=== PATIENT | male | born 1955 | race Caucasian/White ===

== ENCOUNTER 2016-08-01 20:24 | Emergency (ER) | payer BC ==
--- NOTE | 2016-08-01 20:31 | ER Document Report ---
ED Medical Screen (RME) - General Chief Complaint: Fever Stated Complaint: FEVER Time seen by provider: 20:31 Mode of Arrival: Ambulatory Information source: Patient Notes: 61-year-old male with bladder cancer with metastases to the lymph nodes finished a chemotherapy round yesterday at [facility]. He developed a fever of 101 today and was told to come to the emergency room for workup. He is wearing a mask. TRAVEL OUTSIDE OF THE [place] IN LAST 30 DAYS: No - Related Data Allergies/Adverse Reactions: No Known Allergies Allergy (Verified 08/01/16 20:29) Past Medical History - Past Medical History Cardiac Medical History: Denies: Hx Coronary Artery Disease, Hx Heart Attack, Hx Hypertension Pulmonary Medical History: Denies: Hx Asthma, Hx Bronchitis, Hx COPD, Hx Pneumonia Neurological Medical History: Denies: Hx Cerebrovascular Accident, Hx Seizures Endocrine Medical History: Reports: Hx Diabetes Mellitus Type 2 Renal/ Medical History: Reports: Hx Benign Prostatic Hyperplasia Musculoskeltal Medical History: Denies Hx Arthritis Traumatic Medical History: Reports: Hx Fractures - forearm fx's Past Surgical History: Reports: Hx Orthopedic Surgery - ORIF Left forearm - Immunizations Hx Diphtheria, Pertussis, Tetanus Vaccination: Yes
[2016-08-01 20:50] LABS: APPEARANCE,URINE CLEAR; BILIRUBIN,URINE NEGATIVE (NEGATIVE); GLUCOSE, URINE NEGATIVE (NEGATIVE); KETONES,URINE NEGATIVE (NEGATIVE); LEUKOCYTE ESTERASE,URINE NEGATIVE (NEGATIVE); NITRITE,URINE NEGATIVE (NEGATIVE); PROTEIN,URINE NEGATIVE (NEGATIVE); URINE SPECIFIC GRAVITY 1.002; UROBILINOGEN,URINE NEGATIVE mg/dL (<2.0)
[2016-08-01 22:10] LABS: ABSOLUTE LYMPHOCYTES (AUTO) 1.1 10^3/uL (0.5-4.7); ABSOLUTE MONOCYTES (AUTO) 0.2 10^3/uL (0.1-1.4); ABSOLUTE NEUT (AUTO) 4.9 10^3/uL (1.7-8.2); BASOPHILS % (AUTO) 0.1 % (0-2); HEMATOCRIT 33.2 % (37.9-51.0); HEMOGLOBIN 11.3 g/dL (13.5-17.0); HGB HCT DIFFERENCE 0.7; LYMPHOCYTES % (AUTO) 17.8 % (13-45); MEAN CORPUSCULAR HEMOGLOBIN 31.2 pg (27.0-33.4); MEAN CORPUSCULAR HGB CONC 34.1 g/dL (32.0-36.0); MEAN CORPUSCULAR VOLUME 92 fl (80-97); MONOCYTES % (AUTO) 2.7 % (3-13); RED BLOOD COUNT 3.63 10^6/uL (4.35-5.55); RED CELL DISTRIBUTION WIDTH 12.7 % (11.5-14.0); SEGMENTED NEUTROPHILS % (AUTO) 79.4 % (42-78); WHITE BLOOD COUNT 6.2 10^3/uL (4.0-10.5)
[2016-08-01 22:15] LABS: ALANINE AMINOTRANSFERASE 23 U/L (21-72); ALBUMIN 3.6 g/dL (3.5-5.0); ALKALINE PHOSPHATASE 154 U/L (38-126); ANION GAP 13 (5-19); ASPARTATE AMINO TRANSFERASE 20 U/L (17-59); BILIRUBIN,TOTAL 0.7 mg/dL (0.2-1.3); BLOOD UREA NITROGEN 19 mg/dL (7-20); CALCIUM 9.3 mg/dL (8.4-10.2); CARBON DIOXIDE 27 mmol/L (22-30); CHLORIDE 97 mmol/L (98-107); CREATININE RESULT 1.13 mg/dL (0.52-1.25); GLUCOSE 100 mg/dL (75-110); POTASSIUM 4.3 mmol/L (3.6-5.0); SODIUM 137.4 mmol/L (137-145)
--- NOTE | 2016-08-01 23:13 | ER Document Report ---
ED General - General Chief Complaint: Fever Stated Complaint: FEVER Mode of Arrival: Ambulatory Notes: Patient is a 61-year-old male with past medical history of stage IV bladder cancer currently receiving chemotherapy, last dose was yesterday at [facility] who presents with a fever to 101F recorded orally just prior to arrival. This temperature was checked as patient had apparently been complaining of being both hot and cold and was noted to be diaphoretic. He denies any additional complaints including cough, sputum depression, dysuria, abdominal pain, vomiting or diarrhea, headache, or neck pain. He has not had similar symptoms in the past. They did contact the oncologist suction plate carrier cleaner at [facility] who encouraged him to come to the emergency department for further evaluation. Notes that his fever did resolve after receiving 975 mg of Tylenol prior to arrival. Nothing worsens his symptoms. TRAVEL OUTSIDE OF THE [place] IN LAST 30 DAYS: No - Related Data Allergies/Adverse Reactions: No Known Allergies Allergy (Verified 08/01/16 20:29) Past Medical History - General Information source: Patient - Social History Smoking Status: Never Smoker Chew tobacco use (# tins/day): No Frequency of alcohol use: None Drug Abuse: None Lives with: Spouse/Significant other Family History: Reviewed & Not Pertinent Patient has suicidal ideation: No Patient has homicidal ideation: No - Past Medical History Cardiac Medical History: Denies: Hx Coronary Artery Disease, Hx Heart Attack, Hx Hypertension Pulmonary Medical History: Denies: Hx Asthma, Hx Bronchitis, Hx COPD, Hx Pneumonia Neurological Medical History: Denies: Hx Cerebrovascular Accident, Hx Seizures Endocrine Medical History: Reports: Hx Diabetes Mellitus Type 2 Renal/ Medical History: Reports: Hx Benign Prostatic Hyperplasia. Denies: Hx Peritoneal Dialysis Musculoskeltal Medical History: Denies Hx Arthritis Traumatic Medical History: Reports: Hx Fractures - forearm fx's Past Surgical History: Reports: Hx Orthopedic Surgery - ORIF Left forearm - Immunizations Hx Diphtheria, Pertussis, Tetanus Vaccination: Yes Review of Systems - Review of Systems Notes: Constitutional: Positive for fever. HENT: Negative for sore throat. Eyes: Negative for visual changes. Cardiovascular: Negative for chest pain. Respiratory: Negative for shortness of breath. Gastrointestinal: Negative for abdominal pain, vomiting or diarrhea. Genitourinary: Negative for dysuria. Musculoskeletal: Negative for back pain. Skin: Negative for rash. Neurological: Negative for headaches, weakness or numbness. 10 point ROS negative except as marked above and in HPI. Physical Exam - Vital signs Vitals: Pulse Resp BP Pulse Ox 84 20 130/76 H 94 08/01/16 20:30 08/01/16 20:30 08/01/16 20:30 08/01/16 20:30 Interpretation: Normal Notes: PHYSICAL EXAMINATION: GENERAL: Well-appearing, well-nourished and in no acute distress. HEAD: Atraumatic, normocephalic. EYES: Pupils equal round and reactive to light, extraocular movements intact, sclera anicteric, conjunctiva are normal. ENT: nares patent, oropharynx clear without exudates. Moist mucous membranes. NECK: Normal range of motion, supple without lymphadenopathy LUNGS: Breath sounds clear to auscultation bilaterally and equal. No wheezes rales or rhonchi. HEART: Regular rate and rhythm without murmurs ABDOMEN: Soft, nontender, normoactive bowel sounds. No guarding, no rebound. No masses appreciated. EXTREMITIES: Normal range of motion, no pitting or edema. No cyanosis. NEUROLOGICAL: No focal neurological deficits. Moves all extremities spontaneously and on command. PSYCH: Normal mood, normal affect. SKIN: Warm, Dry, normal turgor, no rashes or lesions noted. Course - Re-evaluation Re-evalutation: 08/01/16 23:12 Patient presents with fever recorded at home to 101.4 but is otherwise well in appearance. He has no localizing infectious symptoms. His laboratories here does not show neutropenia. Chest x-ray clear. Influenza negative. Urinalysis unremarkable. Blood and urine cultures have been drawn. I discussed this case with the oncologist suction plate carrier cleaner at [facility] where patient follows for his chemotherapy Dr. Coffman who is a fellow. She recommended obs without abx. This does not make clinical sense to me given that patient is not neutropenic and is otherwise very well in appearance and does not have a source. I discussed this with the hospitalist who agreed that this patient does not meet admission criteria. I also contacted our attending oncologist Dr. Hansen suction plate carrier cleaner who agrees that given that patient does not have a source, is not neutropenic, and is well appearing, hemodynamically within normal limits that he is stable for discharge home and she agrees that hospitalization is not required. At this time will discharge with return precautions and follow-up recommendations. Verbal discharge instructions given a the bedside and opportunity for questions given. Medication warnings reviewed. Patient is in agreement with this plan and has verbalized understanding of return precautions and the need for follow-up in the next 24-72 hours. - Vital Signs Vital signs: Temp Pulse Resp BP Pulse Ox 98.8 F 86 16 128/68 H 98 08/01/16 23:29 08/01/16 23:29 08/01/16 23:29 08/01/16 23:29 08/01/16 23:29 - Laboratory Result Diagrams: 08/01/16 21:45 08/01/16 21:45 Laboratory results interpreted by me: 08/01/16 08/01/16 08/01/16 20:30 21:45 21:45 RBC 3.63 L Hgb 11.3 L Hct 33.2 L Plt Count 143 L Seg Neutrophils % 79.4 H Monocytes % 2.7 L Chloride 97 L Alkaline Phosphatase 154 H Urine Blood SMALL H - Diagnostic Test Radiology reviewed: Image reviewed, Reports reviewed Radiology results interpreted by me: 08/01/16 23:25 Chest x-ray: No acute infiltrate Discharge - Discharge Clinical Impression: Fever Qualifiers: Fever type: unspecified Qualified Code(s): R50.9 - Fever, unspecified Bladder cancer Qualifiers: Bladder location: unspecified site Qualified Code(s): C67.9 - Malignant neoplasm of bladder, unspecified Condition: Good Disposition: HOME, SELF-CARE Additional Instructions: Your blood counts are normal today and your not neutropenic. Your chest x-ray, flu swab, and urinalysis are all normal. Please follow-up with your primary care team in the next 24-48 hours. Return immediately to the emergency department if you develop recurrent fevers, persistent vomiting, weakness, headache, neck pain, or any other symptoms that are concerning to you. Referrals: TREVOR PETERSEN MD [Primary Care Provider] - Follow up as needed
[2016-08-01 23:52] VITALS: BP 128/68
== END 2016-08-01 23:52 | disposition home or self-care (01) ==
LOC: ER 20:24
DX: R50.9 Fever, unspecified (principal); C67.9 Malignant neoplasm of bladder, unspecified; R61 Generalized hyperhidrosis; E11.9 Type 2 diabetes mellitus without complications; Z79.899 Other long term (current) drug therapy
CPT/HCPCS: 36415; 71020; 80053; 81001; 85025; 87040; 87086; 87804; 99283

== ENCOUNTER 2016-12-30 17:26 | Emergency (ER) | payer BC ==
[2016-12-30] MEDS ORDERED: NORMAL SALINE 1000 ML 1,000 ML IV PRN (18:14)
[2016-12-30] MEDS ORDERED: KETOROLAC TROMETHAMINE INJ/PF 30 MG/1 ML SDV IV ONE (18:36)
[2016-12-30] MEDS ORDERED: MORPHINE SULFATE 10 MG/ML INJ IV ONE (18:36)
--- NOTE | 2016-12-30 18:51 | RADIOLOGY REPORT (SQ) ---
EXAM DESCRIPTION: CHEST SINGLE VIEW COMPLETED DATE/TIME: 12/30/2016 6:29 pm REASON FOR STUDY: chest pain COMPARISON: 08/01/2016 EXAM PARAMETERS: NUMBER OF VIEWS: One view. TECHNIQUE: Single frontal radiographic view of the chest acquired. RADIATION DOSE: NA LIMITATIONS: None. FINDINGS: LUNGS AND PLEURA: No acute opacities, masses or pneumothorax. No pleural effusion. MEDIASTINUM AND HILAR STRUCTURES: Stable. HEART AND VASCULAR STRUCTURES: Heart normal in size. Normal vasculature. BONES: No acute findings. HARDWARE: Right chest port. OTHER: No other significant finding. IMPRESSION: NO ACUTE RADIOGRAPHIC FINDING IN THE CHEST. TECHNICAL DOCUMENTATION: JOB ID: [id number]
[2016-12-30 19:17] LABS: ABSOLUTE BASOPHILS # (AUTO) 0.1 10^3/uL (0.0-0.2); ABSOLUTE LYMPHOCYTES (AUTO) 1.1 10^3/uL (0.5-4.7); ABSOLUTE MONOCYTES (AUTO) 0.8 10^3/uL (0.1-1.4); ABSOLUTE NEUT (AUTO) 5.8 10^3/uL (1.7-8.2); BASOPHILS % (AUTO) 0.8 % (0-2); EOSINOPHILS % (AUTO) 0.2 % (0-6); HEMATOCRIT 32.4 % (37.9-51.0); HEMOGLOBIN 10.7 g/dL (13.5-17.0); HGB HCT DIFFERENCE -0.3; LYMPHOCYTES % (AUTO) 14.6 % (13-45); MEAN CORPUSCULAR HEMOGLOBIN 32.9 pg (27.0-33.4); MEAN CORPUSCULAR HGB CONC 33.1 g/dL (32.0-36.0); MEAN CORPUSCULAR VOLUME 99 fl (80-97); MONOCYTES % (AUTO) 10.3 % (3-13); RED BLOOD COUNT 3.25 10^6/uL (4.35-5.55); RED CELL DISTRIBUTION WIDTH 17.1 % (11.5-14.0); SEGMENTED NEUTROPHILS % (AUTO) 74.1 % (42-78); WHITE BLOOD COUNT 7.8 10^3/uL (4.0-10.5)
[2016-12-30 19:30] LABS: ALANINE AMINOTRANSFERASE 21 U/L (21-72); ALBUMIN 3.6 g/dL (3.5-5.0); ALKALINE PHOSPHATASE 147 U/L (38-126); ANION GAP 12 (5-19); ASPARTATE AMINO TRANSFERASE 15 U/L (17-59); BILIRUBIN,DIRECT 0.3 mg/dL (0.0-0.4); BILIRUBIN,TOTAL 0.4 mg/dL (0.2-1.3); BLOOD UREA NITROGEN 15 mg/dL (7-20); CALCIUM 8.8 mg/dL (8.4-10.2); CARBON DIOXIDE 19 mmol/L (22-30); CHLORIDE 108 mmol/L (98-107); GLUCOSE 100 mg/dL (75-110); LIPASE 76.6 U/L (23-300); POTASSIUM 5.2 mmol/L (3.6-5.0); SODIUM 139.1 mmol/L (137-145); TOTAL PROTEIN 7.9 g/dL (6.3-8.2)
--- NOTE | 2016-12-30 20:47 | ER Document Report ---
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 He said that he has had this in the past. He took his oxycodone, but has not taken his home morphine because he does not like the way it makes him feel. His family members noticed that he was anxious and confused earlier today, but this has resolved. Patient denies dysuria, flank pain, nausea, vomiting, diarrhea, constipation, fevers, rash, chest pain or shortness of breath. TRAVEL OUTSIDE OF THE [place] IN LAST 30 DAYS: No - Related Data Allergies/Adverse Reactions: No Known Allergies Allergy (Verified 12/30/16 17:50) Past Medical History - General Information source: Patient, Relative - Social History Smoking Status: Never Smoker Chew tobacco use (# tins/day): No Frequency of alcohol use: None Drug Abuse: None Family History: Reviewed & Not Pertinent - Past Medical History Cardiac Medical History: Denies: Hx Coronary Artery Disease, Hx Heart Attack, Hx Hypertension Pulmonary Medical History: Denies: Hx Asthma, Hx Bronchitis, Hx COPD, Hx Pneumonia Neurological Medical History: Denies: Hx Cerebrovascular Accident, Hx Seizures Endocrine Medical History: Reports: Hx Diabetes Mellitus Type 2 Renal/ Medical History: Reports: Hx Benign Prostatic Hyperplasia. Denies: Hx Peritoneal Dialysis Musculoskeltal Medical History: Denies Hx Arthritis Traumatic Medical History: Reports: Hx Fractures - forearm fx's Past Surgical History: Reports: Hx Orthopedic Surgery - ORIF Left forearm - Immunizations Hx Diphtheria, Pertussis, Tetanus Vaccination: Yes Review of Systems - Review of Systems Notes: REVIEW OF SYSTEMS: CONSTITUTIONAL: -fevers, -chills EENT: -eye pain, -difficulty swallowing, -nasal congestion CARDIOVASCULAR:-chest pain, -syncope. RESPIRATORY: -cough, -SOB GASTROINTESTINAL: +abdominal pain, -nausea, -vomiting, -diarrhea GENITOURINARY: -dysuria, -hematuria MUSCULOSKELETAL: -back pain, -neck pain SKIN: -rash or skin lesions. HEMATOLOGIC: -easy bruising or bleeding. LYMPHATIC: -swollen, enlarged glands. NEUROLOGICAL: -altered mental status or loss of consciousness, -headache, - neurologic symptoms PSYCHIATRIC: -anxiety, -depression. ALL OTHER SYSTEMS REVIEWED AND NEGATIVE. Physical Exam - Vital signs Vitals: Resp Pulse Ox 26 H 100 12/30/16 17:56 12/30/16 17:56 - Notes Notes: PHYSICAL EXAMINATION: GENERAL: Well-appearing, well-nourished and in no acute distress. HEAD: Atraumatic, normocephalic. EYES: Pupils equal round and reactive to light, extraocular movements intact, sclera anicteric, conjunctiva are normal. ENT: nares patent, oropharynx clear without exudates. Moist mucous membranes. NECK: Normal range of motion, supple without lymphadenopathy LUNGS: Breath sounds clear to auscultation bilaterally and equal. No wheezes rales or rhonchi. HEART: Tachycardia, regular rhythm ABDOMEN: Soft, normoactive bowel sounds. Tenderness over B/L inguinal regions but no hernia palpated. No guarding, no rebound. No crepitus or rash. No masses appreciated. EXTREMITIES: Normal range of motion, no pitting or edema. No cyanosis. NEUROLOGICAL: Cranial nerves grossly intact. Normal speech, normal gait. Normal sensory and motor exams. PSYCH: Normal mood, normal affect. SKIN: Warm, Dry, normal turgor, no rashes or lesions noted. Course - Re-evaluation Re-evalutation: Patient's labs and urine are unremarkable. His CT shows bony metastases to his pelvis, which is most likely causing his pain. He knows about these metastases. He only has 2 oxycodone left and says that the Naprosyn and oxycodone help with his pain more than the morphine. He is requesting a short refill until he can see his oncologist in 2 days. Provided him with a prescription of the Naprosyn and 10 oxycodones with follow-up at his [facility] oncologist. Given return precautions and patient understand. - Vital Signs Vital signs: Temp Pulse Resp BP Pulse Ox 98.2 F 18 111/60 98 12/30/16 18:01 12/30/16 21:45 12/30/16 21:01 12/30/16 21:45 - Laboratory Result Diagrams: 12/30/16 19:00 12/30/16 19:00 Laboratory results interpreted by me: 12/30/16 12/30/16 12/30/16 19:00 19:00 20:50 RBC 3.25 L Hgb 10.7 L Hct 32.4 L MCV 99 H RDW 17.1 H Potassium 5.2 H Chloride 108 H Carbon Dioxide 19 L AST 15 L Alkaline Phosphatase 147 H Urine Ketones TRACE H - Diagnostic Test Radiology reviewed: Image reviewed, Reports reviewed Radiology results interpreted by me: CT A/P: bony mets to pelvis Discharge - Discharge Clinical Impression: Pain from bone metastases Condition: Stable Disposition: HOME, SELF-CARE Additional Instructions: Follow-up with your oncologist for further evaluation and treatment. Bring a copy of your CAT scan and lab results. Prescriptions: Naproxen [Naprosyn 250 mg Tablet] 500 mg PO Q12H PRN #30 tablet PRN Reason: Oxycodone HCl [Oxycodone HCl 10 MG Tablet] 1 - 2 tab PO Q6H PRN #10 tablet PRN Reason: PAIN Referrals: WHIT YOUNG MD [Primary Care Provider] - Follow up as needed
[2016-12-30 21:22] LABS: APPEARANCE,URINE CLEAR; BILIRUBIN,URINE NEGATIVE (NEGATIVE); GLUCOSE, URINE NEGATIVE (NEGATIVE); KETONES,URINE TRACE mg/dL (NEGATIVE); LEUKOCYTE ESTERASE,URINE NEGATIVE (NEGATIVE); NITRITE,URINE NEGATIVE (NEGATIVE); PROTEIN,URINE NEGATIVE (NEGATIVE); URINE SPECIFIC GRAVITY 1.032; UROBILINOGEN,URINE NEGATIVE mg/dL (<2.0)
--- NOTE | 2016-12-30 21:24 | RADIOLOGY REPORT (SQ) ---
EXAM DESCRIPTION: CT ABD/PELVIS WITH IV ONLY COMPLETED DATE/TIME: 12/30/2016 8:39 pm REASON FOR STUDY: bladder cancer, pelvic pain, worsening mets COMPARISON: 09/09/2015 TECHNIQUE: CT scan of the abdomen and pelvis performed using helical scanning technique with dynamic intravenous contrast injection. No oral contrast. Images reviewed with lung, soft tissue, and bone windows. Reconstructed coronal and sagittal MPR images reviewed. Delayed images for evaluation of the urinary system also acquired. All images stored on PACS. All CT scanners at this facility use dose modulation, iterative reconstruction, and/or weight based d osing when appropriate to reduce radiation dose to as low as reasonably achievable (ALARA). [facility]: Dose Right [facility]: CareDose [facility]: Dose Right [facility]: Teradose 4D [facility]: [place] [facility] 911 CONTRAST TYPE AND DOSE: contrast/concentration: Isovue 370.00 mg/ml; Total Contrast Delivered: 81.0 ml; Total Saline Delivered: 68.0 ml RENAL FUNCTION: GFR > 60. RADIATION DOSE: 11.96. LIMITATIONS: None. FINDINGS: LOWER CHEST: No significant findings. No nodules or infiltrates. LIVER: Normal size. No dilated ducts. Scattered hepatic cysts. SPLEEN: Normal size. No focal lesions. PANCREAS: No masses. No significant calcifications. No adjacent inflammation or peripancreatic fluid collections. Pancreatic duct not dilated. GALLBLADDER: No identified stones by CT criteria. No inflammatory changes to suggest cholecystitis. ADRENAL GLANDS: No significant masses or asymmetry. RIGHT KIDNEY AND URETER: No solid masses. No significant calcifications. No hydronephrosis or hyd roureter. LEFT KIDNEY AND URETER: No solid masses. No significant calcifications. No hydronephrosis or hydr oureter. AORTA AND VESSELS: No aneurysm. No dissection. Renal arteries, SMA, celiac without stenosis. RETROPERITONEUM: Scattered small retroperitoneal lymph nodes. BOWEL AND PERITONEAL CAVITY: No masses or inflammatory changes. No free fluid or peritoneal masses. APPENDIX: Surgically absent. PELVIS: No mass or free fluid. Normal bladder. ABDOMINAL WALL: No masses. No hernias. BONES: The bones appear diffusely infiltrated with multiple blastic metastatic lesions. No fractures identified. OTHER: No other significant finding. IMPRESSION: The bones appear diffusely infiltrated with multiple blastic metastatic lesions. No fra ctures identified. TECHNICAL DOCUMENTATION: JOB ID: [id number] Quality ID # [id number]: Final reports with documentation of one or more dose reduction techniques (e.g., Au tomated exposure control, adjustment of the mA and/or kV according to patient size, use of iterative reconstruction technique) 2010 [employer]- All Rights Reserved
[2016-12-30 21:28] VITALS: BP 111/60
--- NOTE | 2017-01-03 22:40 | EKG REPORT ---
SEVERITY:- ABNORMAL ECG - SINUS TACHYCARDIA LEFT ANTERIOR FASCICULAR BLOCK LOW VOLTAGE IN FRONTAL LEADS : Confirmed by: Sandy Trivedi 03-Jan-2017 22:40:08
== END 2016-12-30 22:03 | disposition home or self-care (01) ==
LOC: ER 17:26
DX: G89.3 Neoplasm related pain (acute) (chronic) (principal); C79.51 Secondary malignant neoplasm of bone; M79.1 Myalgia; E11.9 Type 2 diabetes mellitus without complications; Z85.51 Personal history of malignant neoplasm of bladder
CPT/HCPCS: 36591; 99285; 96361; 96374; 96375; 36415; 83690; 85025; 80053; 81001; 83880; 71010; 74177; J1885; J2270; J7030; 93010

== ENCOUNTER 2017-03-08 16:18 | Emergency (ER) | payer BC ==
--- NOTE | 2017-03-08 16:53 | ER Document Report ---
ED Medical Screen (RME) - General Chief Complaint: Knee Pain Stated Complaint: RIGHT LEG PAIN Time Seen by Provider: 03/08/17 16:52 Notes: Patient has metastatic bladder cancer. It is metastasized to his bones. He presents today with 3 days of right lower extremity pain and swelling. He states that he was referred by his doctors at [facility] to have an ultrasound done here today. TRAVEL OUTSIDE OF THE [place] IN LAST 30 DAYS: No - Related Data Allergies/Adverse Reactions: No Known Allergies Allergy (Verified 03/08/17 16:26) Home Medications: Current Home Medications Duloxetine HCl 20 mg PO DAILY 03/08/17 [History] Oxycodone HCl 45 mg PO Q4H 03/08/17 [History] Trazodone HCl 50 mg PO DAILY 03/08/17 [History] Past Medical History - Social History Chew tobacco use (# tins/day): No Frequency of alcohol use: None Drug Abuse: None - Past Medical History Cardiac Medical History: Denies: Hx Coronary Artery Disease, Hx Heart Attack, Hx Hypertension Pulmonary Medical History: Denies: Hx Asthma, Hx Bronchitis, Hx COPD, Hx Pneumonia Neurological Medical History: Denies: Hx Cerebrovascular Accident, Hx Seizures Endocrine Medical History: Reports: Hx Diabetes Mellitus Type 2 Renal/ Medical History: Reports: Hx Benign Prostatic Hyperplasia. Denies: Hx Peritoneal Dialysis Musculoskeltal Medical History: Denies Hx Arthritis Traumatic Medical History: Reports: Hx Fractures - forearm fx's Past Surgical History: Reports: Hx Appendectomy, Hx Orthopedic Surgery - ORIF Left forearm - Immunizations Hx Diphtheria, Pertussis, Tetanus Vaccination: Yes Physical Exam - Vital signs Vitals: Temp Pulse Resp BP Pulse Ox 98.7 F 102 H 16 97/61 L 98 03/08/17 16:26 03/08/17 16:26 03/08/17 16:26 03/08/17 16:26 03/08/17 16:26 Course - Vital Signs Vital signs: Temp Pulse Resp BP Pulse Ox 98.7 F 102 H 16 97/61 L 98 03/08/17 16:26 03/08/17 16:26 03/08/17 16:26 03/08/17 16:26 03/08/17 16:26
--- NOTE | 2017-03-08 18:22 | ER Document Report ---
ED Extremity Problem, Lower - General Chief Complaint: Knee Pain Stated Complaint: RIGHT LEG PAIN Time Seen by Provider: 03/08/17 16:52 Mode of Arrival: Ambulatory Information source: Patient Notes: Patient is a 61-year-old male with bladder cancer with bone metastasis who presents to the ER today for right knee swelling that started 3 days ago. Patient is complaining of pain to the right knee as well. He has no history of blood clots but is on chemotherapy. [place] told him to come to the emergency department to get an ultrasound to rule out DVT. He denies any calf pain, fever, chills, chest pain or shortness of breath. TRAVEL OUTSIDE OF THE [place] IN LAST 30 DAYS: No - Related Data Allergies/Adverse Reactions: No Known Allergies Allergy (Verified 03/08/17 16:26) Home Medications: Current Home Medications Duloxetine HCl 20 mg PO DAILY 03/08/17 [History] Oxycodone HCl 45 mg PO Q4H 03/08/17 [History] Trazodone HCl 50 mg PO DAILY 03/08/17 [History] Past Medical History - General Information source: Patient - Social History Smoking Status: Former Smoker Chew tobacco use (# tins/day): No Frequency of alcohol use: None Drug Abuse: None Family History: Reviewed & Not Pertinent - Past Medical History Cardiac Medical History: Denies: Hx Coronary Artery Disease, Hx Heart Attack, Hx Hypertension Pulmonary Medical History: Denies: Hx Asthma, Hx Bronchitis, Hx COPD, Hx Pneumonia Neurological Medical History: Denies: Hx Cerebrovascular Accident, Hx Seizures Endocrine Medical History: Reports: Hx Diabetes Mellitus Type 2 Renal/ Medical History: Reports: Hx Benign Prostatic Hyperplasia. Denies: Hx Peritoneal Dialysis Musculoskeltal Medical History: Denies Hx Arthritis Traumatic Medical History: Reports: Hx Fractures - forearm fx's Past Surgical History: Reports: Hx Appendectomy, Hx Orthopedic Surgery - ORIF Left forearm - Immunizations Hx Diphtheria, Pertussis, Tetanus Vaccination: Yes Review of Systems - Review of Systems Constitutional: No symptoms reported EENT: No symptoms reported Cardiovascular: No symptoms reported Respiratory: No symptoms reported Gastrointestinal: No symptoms reported Genitourinary: No symptoms reported Male Genitourinary: No symptoms reported Musculoskeletal: See HPI Skin: See HPI Hematologic/Lymphatic: No symptoms reported Neurological/Psychological: No symptoms reported Physical Exam - Vital signs Vitals: Temp Pulse Resp BP Pulse Ox 98.7 F 102 H 16 97/61 L 98 03/08/17 16:26 03/08/17 16:26 03/08/17 16:26 03/08/17 16:26 03/08/17 16:26 - Notes Notes: PHYSICAL EXAMINATION: GENERAL: chronically ill appearing, in no acute distress. HEAD: Atraumatic, normocephalic. EYES: Pupils equal round and reactive to light, extraocular movements intact, sclera anicteric, conjunctiva are normal. NECK: Normal range of motion, supple without lymphadenopathy LUNGS: CTAB and equal. No wheezes rales or rhonchi. HEART: Regular rate and rhythm without murmurs ABDOMEN: Soft, no tenderness. No guarding, no rebound EXTREMITIES: Normal range of motion, no pitting edema. No cyanosis. NEUROLOGICAL: Cranial nerves grossly intact. Normal sensory/motor exams. PSYCH: Normal mood, normal affect. SKIN: Warm, Dry, normal turgor, slight edema noted to right anterior knee, minimally tender Course - Re-evaluation Re-evalutation: 03/09/17 18:59 Doppler ultrasound was negative for any DVT, but did note some evidence that something may be blocking further up, possible common femoral or iliac veins, CTV was advised by Dr. Calderon, radiologist reading today who also states that he could follow-up with him in the office because this likely will not show anything. Patient was given the choice and decided to follow-up with him in the office. - Vital Signs Vital signs: Temp Pulse Resp BP Pulse Ox 98.7 F 102 H 20 109/71 91 L 03/08/17 16:26 03/08/17 16:26 03/08/17 18:00 03/08/17 18:00 03/08/17 18:00 Discharge - Discharge Clinical Impression: Pain and swelling of right knee, Bladder cancer metastasized to bone Condition: Stable Disposition: HOME, SELF-CARE Additional Instructions: Return immediately for any new or worsening symptoms. Follow up with primary care provider, call tomorrow to make followup appointment. Call tomorrow to follow up with Dr. Calderon in the office. He wanted to see you about your ultrasound and further evaluation of it. Referrals: KJ CALDERON MD [ACTIVE STAFF] - Follow up as needed
[2017-03-08 18:26] VITALS: BP 109/71
--- NOTE | 2017-03-09 10:43 | XCELERA REPORT ---
[address] [address] Lower Extremity Venous Evaluation Name: DAVID CHERRY Age: 61 yrs Gender: Male : 1955 Patient Status: Emergency Patient Location: ER Study Date: 03/08/2017 05:32 PM Procedure: Color flow and duplex imaging of the veins of the right lower extremity as well as the left Common Femoral vein. Reason For Study: cancer/right leg swelling/pain Ordering Physician: ROSE MARIE BISHOP Performed By: Joanne Pinto Right Sided Venous Evaluation Monophasic continuous flow in the Common Femoral vein. Otherwise normal vessel filling wall to wall, compression and augmentation as well as Colour flow down to the infrageniculate veins. Left Sided Venous Evaluation The left common femoral vein is fully compressible. Spontaneous and phasic flow is present in the left common femoral vein. Critical Findings Discussed with Dr Roque findings of negative DVT but suggestion of proximal disease, e.g. in the right Iliac vein. Interpretation Summary No duplex evidence of DVT or obstruction in the right lower extremity nor in the left Common Femoral vein. Abnormal signal in right Common Femoral vein may suggest pathology at a higher level, that may require other testing. : ROSE MARIE BISHOP > Zcah Calderon
== END 2017-03-08 18:35 | disposition home or self-care (01) ==
LOC: ER 16:18
DX: M25.561 Pain in right knee (principal); M25.461 Effusion, right knee; C67.9 Malignant neoplasm of bladder, unspecified; C79.51 Secondary malignant neoplasm of bone; Z79.899 Other long term (current) drug therapy; Z87.891 Personal history of nicotine dependence
CPT/HCPCS: 93971; 99283

== ENCOUNTER 2017-04-08 19:49 | Emergency (ER) | payer BC ==
[2017-04-08 20:39] VITALS: BP 110/69
--- NOTE | 2017-04-08 20:58 | ER Document Report ---
ED General - General Chief Complaint: Medical Complaint Stated Complaint: PORT TAKE OUT Time Seen by Provider: 04/08/17 20:56 Notes: Patient presents and states that he needs his port de-accessed. He states he was seen at [facility] today and I forgot to remove his port. Patient denies any other significant concerns. TRAVEL OUTSIDE OF THE [place] IN LAST 30 DAYS: No - Related Data Allergies/Adverse Reactions: No Known Allergies Allergy (Verified 03/08/17 16:26) Past Medical History - General Information source: Patient - Social History Smoking Status: Former Smoker Family History: Reviewed & Not Pertinent Patient has suicidal ideation: No Patient has homicidal ideation: No - Past Medical History Cardiac Medical History: Denies: Hx Coronary Artery Disease, Hx Heart Attack, Hx Hypertension Pulmonary Medical History: Denies: Hx Asthma, Hx Bronchitis, Hx COPD, Hx Pneumonia Neurological Medical History: Denies: Hx Cerebrovascular Accident, Hx Seizures Endocrine Medical History: Reports: Hx Diabetes Mellitus Type 2 Renal/ Medical History: Reports: Hx Benign Prostatic Hyperplasia. Denies: Hx Peritoneal Dialysis Musculoskeltal Medical History: Denies Hx Arthritis Traumatic Medical History: Reports: Hx Fractures - forearm fx's Past Surgical History: Reports: Hx Appendectomy, Hx Orthopedic Surgery - ORIF Left forearm - Immunizations Hx Diphtheria, Pertussis, Tetanus Vaccination: Yes Review of Systems - Review of Systems Constitutional: denies: Chills, Fever Physical Exam - Vital signs Vitals: Temp Pulse Resp BP Pulse Ox 98.5 F 116 H 16 110/69 100 04/08/17 20:34 04/08/17 20:34 04/08/17 20:34 04/08/17 20:34 04/08/17 20:34 - Notes Notes: Port shows a Meza needle in place. No surrounding erythema or tenderness. Exam otherwise unremarkable Course - Re-evaluation Re-evalutation: 04/08/17 20:57 Using sterile technique the Meza needle was DXS from the port. Patient tolerated this well and there were no complications. A sterile dressing was placed. - Vital Signs Vital signs: Temp Pulse Resp BP Pulse Ox 98.5 F 116 H 16 110/69 100 04/08/17 20:34 04/08/17 20:34 04/08/17 20:34 04/08/17 20:34 04/08/17 20:34 Discharge - Discharge Clinical Impression: Encounter for care related to vascular access port Condition: Stable Disposition: HOME, SELF-CARE Additional Instructions: Follow-up with [facility] as scheduled
== END 2017-04-08 21:00 | disposition home or self-care (01) ==
LOC: ER 19:49
DX: T82.9XXA Unspecified complication of cardiac and vascular prosthetic device, implant and graft, initial encounter (principal)
CPT/HCPCS: 99283

== ENCOUNTER 2017-04-11 23:48 | Emergency (ER) | payer BC ==
[2017-04-11] MEDS ORDERED: NORMAL SALINE 1000 ML 1,000 ML IV ONE (23:58)
--- NOTE | 2017-04-12 00:29 | ER Document Report ---
ED General - General Chief Complaint: Nausea/Vomiting/Diarrhea Stated Complaint: NAUSEA,VOMITING,DIARRHEA Time Seen by Provider: 04/11/17 23:50 Notes: Patient is a 61-year-old male presents with complaint of vomiting and diarrhea and feeling weak. Patient says that this is been ongoing since Wednesday. Says he has not had chemotherapy in 3 months. He has been receiving radiation treatment. Patient is followed at [facility] for all his cancer care. Is a history of stage IV bladder cancer. He also receives radiation to the bladder. T-max at home is been around 99. No blood in his emesis. No blood in the stool. He denies recent antibiotic use. His med list shows Zofran and Compazine. He says he knows he did take Zofran around 10 PM but he does not think he is taken to Compazine. Paramedics gave him some Reglan in route which seems to have helped him some. Patient has no other complaints at this time. TRAVEL OUTSIDE OF THE [place] IN LAST 30 DAYS: No - Related Data Allergies/Adverse Reactions: No Known Allergies Allergy (Verified 03/08/17 16:26) Past Medical History - Social History Smoking Status: Unknown if Ever Smoked Frequency of alcohol use: None Drug Abuse: None Family History: Reviewed & Not Pertinent - Past Medical History Cardiac Medical History: Denies: Hx Coronary Artery Disease, Hx Heart Attack, Hx Hypertension Pulmonary Medical History: Denies: Hx Asthma, Hx Bronchitis, Hx COPD, Hx Pneumonia Neurological Medical History: Denies: Hx Cerebrovascular Accident, Hx Seizures Endocrine Medical History: Reports: Hx Diabetes Mellitus Type 2 Renal/ Medical History: Reports: Hx Benign Prostatic Hyperplasia. Denies: Hx Peritoneal Dialysis Musculoskeltal Medical History: Denies Hx Arthritis Traumatic Medical History: Reports: Hx Fractures - forearm fx's Past Surgical History: Reports: Hx Appendectomy, Hx Orthopedic Surgery - ORIF Left forearm - Immunizations Hx Diphtheria, Pertussis, Tetanus Vaccination: Yes Review of Systems - Review of Systems Notes: My Normal Review Basic REVIEW OF SYSTEMS: CONSTITUTIONAL : Denies fever, chills, or sweats. Denies recent illness. EENT: Denies eye, ear, throat, or mouth pain or symptoms. Denies nasal or sinus congestion. CARDIOVASCULAR: Denies chest pain. RESPIRATORY: Denies cough, cold, or chest congestion. Denies shortness of breath, difficulty breathing, or wheezing. GASTROINTESTINAL: Mild abdominal pain. Vomiting and diarrhea. GENITOURINARY: Denies difficulty urinating, painful urination, burning, frequency, or blood in urine. MUSCULOSKELETAL: Denies neck or back pain or joint pain or swelling. SKIN: Denies rash or skin lesions. NEUROLOGICAL: Denies altered mental status or loss of consciousness. Denies headache. Denies weakness or paralysis or loss of use of either side. Denies problems with gait or speech. Denies sensory or motor loss. ALL OTHER SYSTEMS REVIEWED AND NEGATIVE. Physical Exam - Vital signs Vitals: Resp BP Pulse Ox 18 102/61 100 04/12/17 00:12 04/12/17 00:12 04/12/17 00:12 - Notes Notes: General Appearance: Well nourished, alert, cooperative, no acute distress, no obvious discomfort. Vitals: reviewed, See vital signs table. Eyes: PERRL, EOMI, Conjuctiva clear Mouth: No decreasd moisture Lungs: No wheezing, No rales, No rhonci, No accessory muscle use, good air exchange bilaterally. Heart: Normal rate, Regular rythm, No murmur, no rub Abdomen: Normal BS, soft, No rigidity, mild diffuse abdominal tenderness palpation, No guarding, no rebound, Extremities: strength 5/5 in all extremities, good pulses in all extremities, no swelling or tenderness in the extremities, no edema. Skin: warm, dry, appropriate color, no rash Neuro: speech clear, oriented x 3, normal affect, responds appropriately to questions. Course - Re-evaluation Re-evalutation: 04/12/17 05:23 Patient unfortunately has evidence of a bowel obstruction on CT scan. Patient also has hydroureter with some hydronephrosis on the right side. I did speak with the medical oncologist, Dr. Mcduffie, [facility] and says that this is old in comparison to previous CT scans there. I initially spoke with our general surgeon, Dr. Dupont, who does not feel the patient's to be cared for here and is to be transferred to [facility] as he would be better served there in case the patient does need operative intervention which would be best handled by on surgery which we do not have here. Also patient's oncology team is also at [facility] which handles his complex underlying condition. I did discuss the case with Dr. Mcduffie. Patient has significant pancytopenia which is new in comparison to previous labs. Patient does not have a fever. After much discussion with Dr. Mcduffie he says that the patient does not meet their criteria to be direct transferred to a medical floor [facility] and therefore would either have to go throughout ecology surgery or the ER. He recommends I speak with SURGERY. I did speak with Dr. Saucedo, oxygen, says that currently this is not a surgical case at this time and therefore he recommends going to the ER. I did speak with the ER, Dr. Avendano, who agrees to accept the patient. We will attempt to place an NG tube in place on low intermittent wall suctioning. Patient will be closely monitored until transfered. Dictation of this chart was performed using voice recognition software; therefore, there may be some unintended grammatical errors. - Vital Signs Vital signs: Temp Pulse Resp BP Pulse Ox 99.8 F 20 124/77 100 04/12/17 04:48 04/12/17 04:00 04/12/17 04:00 04/12/17 04:[address] scan shows possible obstruction. I did speak with her general surgeon, Dr. Dupont, he feels that patient be better served at [facility] because of ONC surgery backup that we do not have here. - Laboratory Result Diagrams: 04/12/17 01:30 04/12/17 00:10 Laboratory results interpreted by me: 04/12/17 04/12/17 04/12/17 00:10 01:05 01:30 WBC 1.5 L* RBC 2.39 L Hgb 6.7 L Hct 19.7 L RDW 17.2 H Plt Count 43 L Band Neutrophils % 34 H Lymphocytes % (Manual) 10 L Metamyelocytes % 2 H Abs Neuts (Manual) 1.3 L Abs Lymphs (Manual) 0.2 L Sodium 129.5 L Potassium 2.6 L* Chloride 85 L Carbon Dioxide 33 H BUN 31 H Glucose 124 H Calcium 7.5 L Direct Bilirubin 0.8 H Alkaline Phosphatase 261 H Total Protein 5.1 L Albumin 2.3 L Urine Protein 100 H Urine Blood SMALL H Urine Urobilinogen 4.0 H - EKG Interpretation by Me Additional EKG results interpreted by me: 04/12/17 00:26 EKG is reviewed and interpreted by me. EKG shows sinus tachycardia with rate of 119 bpm. Patient does have some ST segment depression lead V2 however this may be related to his right bundle branch block with left anterior fascicular block. No significant ST segment elevations. SD interval is within normal range. QRS duration and QTc intervals are prolonged. Old EKG for comparison is from December 30, 2016. Discharge - Discharge Clinical Impression: Hypokalemia, Hyponatremia, Pancytopenia Bowel obstruction Qualifiers: Intestinal obstruction type: unspecified Intestinal obstruction extent: partial Qualified Code(s): K56.600 - Partial intestinal obstruction, unspecified as to cause Condition: Stable Disposition: [place]
[2017-04-12 00:37] LABS: ALANINE AMINOTRANSFERASE 29 U/L (21-72); ALBUMIN 2.3 g/dL (3.5-5.0); ALKALINE PHOSPHATASE 261 U/L (38-126); ANION GAP 12 (5-19); ASPARTATE AMINO TRANSFERASE 20 U/L (17-59); BILIRUBIN,DIRECT 0.8 mg/dL (0.0-0.4); BILIRUBIN,TOTAL 1.1 mg/dL (0.2-1.3); BLOOD UREA NITROGEN 31 mg/dL (7-20); CALCIUM 7.5 mg/dL (8.4-10.2); CARBON DIOXIDE 33 mmol/L (22-30); CHLORIDE 85 mmol/L (98-107); CREATININE RESULT 1.11 mg/dL (0.52-1.25); GLUCOSE 124 mg/dL (75-110); LIPASE 62.2 U/L (23-300); MAGNESIUM 2.1 mg/dL (1.6-2.3); SODIUM 129.5 mmol/L (137-145); TOTAL PROTEIN 5.1 g/dL (6.3-8.2)
--- NOTE | 2017-04-12 00:39 | EKG REPORT ---
SEVERITY:- ABNORMAL ECG - SINUS TACHYCARDIA RBBB AND LAFB : Confirmed by: Sandy Trivedi 12-Apr-2017 00:38:46
[2017-04-12 00:42] LABS: POTASSIUM 2.6 mmol/L (3.6-5.0)
[2017-04-12] MEDS ORDERED: POTASSIUM CHLORIDE 10 MEQ TABLET.SA PO ONE (00:50)
[2017-04-12] MEDS: POTASSI CL 20 MEQ/50 ML RIDER 20 MEQ/50 ML RTUPB IV SCH ×2 (01:08→03:09)
[2017-04-12 01:30] LABS: APPEARANCE,URINE SLIGHTLY-CLOUDY; BILIRUBIN,URINE NEGATIVE (NEGATIVE); GLUCOSE, URINE NEGATIVE (NEGATIVE); KETONES,URINE NEGATIVE (NEGATIVE); LEUKOCYTE ESTERASE,URINE NEGATIVE (NEGATIVE); NITRITE,URINE NEGATIVE (NEGATIVE); PROTEIN,URINE 100 mg/dL (NEGATIVE); URINE SPECIFIC GRAVITY 1.018
[2017-04-12 01:43] LABS: HEMATOCRIT 19.7 % (37.9-51.0); HGB HCT DIFFERENCE 0.4; MEAN CORPUSCULAR VOLUME 82 fl (80-97); RED BLOOD COUNT 2.39 10^6/uL (4.35-5.55); RED CELL DISTRIBUTION WIDTH 17.2 % (11.5-14.0)
[2017-04-12 01:45] LABS: BACTERIA,URINE 1+ /HPF
[2017-04-12] MEDS ORDERED: HYDROMORPHONE HCL INJ/PF 2 MG/ML AMPULE IV ONE (01:46)
[2017-04-12 02:01] LABS: BASOPHILS % (MANUAL) 0 % (0-2); EOSINOPHILS % (MANUAL) 0 % (0-6); LYMPHOCYTES % (MANUAL) 10 % (13-45); NUCLEATED RED BLOOD CELLS 2 /100 WBC (0); TOTAL CELLS COUNTED 50
[2017-04-12 02:04] LABS: ANISOCYTOSIS 1+; OVALOCYTES SLIGHT; POLYCHROMASIA SLIGHT; TARGET CELLS SLIGHT; TEAR DROP CELLS SLIGHT; TOXIC GRANULATION 1+
[2017-04-12 02:06] LABS: WHITE BLOOD COUNT 1.5 10^3/uL (4.0-10.5)
[2017-04-12 02:07] LABS: BAND NEUTROPHILS % (MANUAL) 34 % (3-5); HEMOGLOBIN 6.7 g/dL (13.5-17.0)
--- NOTE | 2017-04-12 03:30 | RADIOLOGY REPORT (SQ) ---
EXAM DESCRIPTION: CT ABD/PELVIS WITH IV ONLY COMPLETED DATE/TIME: 04/12/2017 2:43 am REASON FOR STUDY: abdominal pain, vomiting, diarrhea . History of bladder cancer. COMPARISON: CT abdomen and pelvis 12/30/2016, 09/09/2015. TECHNIQUE: CT scan of the abdomen and pelvis performed using helical scanning technique with dynamic intravenous contrast injection. No oral contrast. Images reviewed with lung, soft tissue, and bone windows. Reconstructed coronal and sagittal MPR images reviewed. Delayed images for evaluation of the urinary system also acquired. All images stored on PACS. All CT scanners at this facility use dose modulation, iterative reconstruction, and/or weight based d osing when appropriate to reduce radiation dose to as low as reasonably achievable (ALARA). [facility]: Dose Right [facility]: CareDose [facility]: Dose Right [facility]: Teradose 4D [facility]: Markkit CONTRAST TYPE AND DOSE: contrast/concentration: Isovue 370.00 mg/ml; Total Contrast Delivered: 54.0 ml; Total Saline Delivered: 65.0 ml RENAL FUNCTION: Creatinine 1.11 RADIATION DOSE: Up-to-date CT equipment and radiation dose reduction techniques were employed. CTDIv ol: 7.8 - 11.2 mGy. DLP: 1015 mGy-cm.. LIMITATIONS: There is artifact from the patient's arms along the body. FINDINGS: LOWER CHEST: There are bibasilar airspace opacities with a 9 mm cavitary lesion at the lef t lower lobe. LIVER: Heterogeneous appearance of the liver parenchyma with scattered hypodense lesions, a represent ative lesion at the anterior left hepatic lobe is measuring 2.1 x 1.6 cm (image 26/94). There is mil d intrahepatic biliary ductal dilation. SPLEEN: Normal size. PANCREAS: No significant calcifications. No adjacent inflammation or peripancreatic fluid collections . Pancreatic duct not dilated. GALLBLADDER: Present. ADRENAL GLANDS: No significant masses or asymmetry. RIGHT KIDNEY AND URETER: Moderate hydronephrosis and dilation of the visualized ureter. Delayed intr avenous contrast excretion at the right kidney. No obstructing stone is identified. LEFT KIDNEY AND URETER: No significant calcifications. No hydronephrosis or hydroureter. AORTA AND VESSELS: No abdominal aortic aneurysm. Scattered atherosclerotic calcifications within the abdominal aorta. RETROPERITONEUM: No retroperitoneal hemorrhage or masses. BOWEL AND PERITONEAL CAVITY: There is an air-fluid level in the stomach. There multiple dilated smal l bowel loops with air-fluid levels. Air-fluid levels are seen at the ascending and transverse colon . The descending colon and the sigmoid colon are collapsed with wall thickened. APPENDIX: Not visualized. PELVIS: The urinary bladder is partially distended. No free fluid. ABDOMINAL WALL: Diffuse subcutaneous edema. BONES: Innumerable sclerotic lesions throughout the visualized spine, ribs, pelvis and proximal femur s. IMPRESSION: Heterogeneous appearance of the liver with scattered hypodense lesions, metastases canno t be excluded. Contrast-enhanced MRI can help in further evaluation. Mild intrahepatic biliary ductal dilation. Moderate right-sided hydroureteronephrosis with delayed intravenous contrast excretion at the right k idney. Air-fluid level in the stomach, air-fluid levels within dilated small bowel loops, and air-fluid leve ls within the ascending colon and transverse colon, may be secondary to ileus versus distal obstructi on. Wall thickening at the descending colon and sigmoid colon, may be due to underdistention versus colit is. Diffuse subcutaneous edema. Diffuse osseous metastatic disease. Bibasilar airspace opacities with a 9 mm cavitary lesion at the left lower lobe, may be secondary to acute infection/inflammation such as pneumonia versus metastatic disease. TECHNICAL DOCUMENTATION: JOB ID: [id number] ID- Quality ID # [id number]: Final reports with documentation of one or more dose reduction techniques (e.g., Au tomated exposure control, adjustment of the mA and/or kV according to patient size, use of iterative reconstruction technique) 2010 [employer]- All Rights Reserved
[2017-04-12] MEDS ORDERED: LORAZEPAM INJ 2 MG/1 ML VIAL ONE (06:06)
[2017-04-12] MEDS ORDERED: ONDANSETRON HCL INJ/PF 4 MG/2 ML SDV IV ONE (06:17)
[2017-04-12] MEDS ORDERED: ONDANSETRON HCL INJ/PF 4 MG/2 ML SDV ONE (06:22)
[2017-04-12 07:15] VITALS: BP 118/78
--- NOTE | 2017-04-12 07:49 | RADIOLOGY REPORT (SQ) ---
EXAM DESCRIPTION: CHEST SINGLE VIEW COMPLETED DATE/TIME: 04/12/2017 7:38 am REASON FOR STUDY: Verify NG placement COMPARISON: Chest x-ray 12/30/2016. CT abdomen and pelvis 04/12/2017. EXAM PARAMETERS: NUMBER OF VIEWS: One view. TECHNIQUE: Single frontal radiographic view of the chest acquired. RADIATION DOSE: NA LIMITATIONS: None. FINDINGS: LUNGS AND PLEURA: No consolidation, pneumothorax or pleural effusion. MEDIASTINUM AND HILAR STRUCTURES: No masses. Contour normal. HEART AND VASCULAR STRUCTURES: Heart normal in size. Normal vasculature. BONES: No acute findings. HARDWARE: Right-sided Port-A-Cath with the tip overlying the region of the right atrium. Enteric tub e terminating in the left upper quadrant, in the expected location of the gastric body. OTHER: Gaseous distension of the visualized bowel loops in the upper abdomen. IMPRESSION: Enteric tube with the tip in the expected location of the gastric body. TECHNICAL DOCUMENTATION: JOB ID: [id number]
[2017-04-12 16:41] LABS: PATH REVIEW PATHOLOGIST REVIEWED
== END 2017-04-12 07:50 | disposition short-term general hospital (02) ==
LOC: ER 23:48
DX: E87.6 Hypokalemia (principal); E87.1 Hypo-osmolality and hyponatremia; D61.818 Other pancytopenia; K56.600 Partial intestinal obstruction, unspecified as to cause; R11.2 Nausea with vomiting, unspecified; R19.7 Diarrhea, unspecified; R53.1 Weakness
CPT/HCPCS: 93005; 99285; 96361; 96375; 96365; 96366; 36415; 83690; 83735; 85025; 80053; 81001; 84484; 71010; 74177; 93010; J1170; J2060; J2405; J3480; J7030